=== PATIENT | male | born 1940 | race African-American/Black ===

== ENCOUNTER 2018-06-15 12:17 | Inpatient (IN) | payer MEDICARE ==
[~2018-06-15] VITALS: Ht 182.9 cm; Wt 907.2 kg
[2018-06-15] MEDS ORDERED: SODIUM CHLORIDE 0.9% 500 ML IV ONE (13:25)
[2018-06-15 13:58] LABS: INR 1.1; PARTIAL THROMBOPLASTIN TIME 33.6 sec (23.4-31.0); PROTHROMBIN TIME 11.3 sec (9.1-11.1)
[2018-06-15 14:01] LABS: CHLORIDE 106 mEq/L (98-107)
[2018-06-15 14:09] LABS: BASOPHILS % 0.6 % (0.0-2.0); EOSINOPHILS % 0.1 % (0.0-5.0); HEMATOCRIT. 31.6 % (42.0-52.0); LYMPHOCYTES % 11.7 % (20.0-50.0); MEAN CORPUSCULAR HEMOGLOBIN 23.1 pg (28.0-32.0); MEAN CORPUSCULAR VOLUME 72.9 fL (80.0-94.0); MEAN PLATELET VOLUME 8.2 fl (7.4-10.4); MONOCYTES % 6.3 % (2.0-8.0); NEUTROPHILS % 81.3 % (40.0-76.0); PLATELET 390 x1000/uL (130-400); RED BLOOD CELL COUNT 4.33 mill/uL (4.7-6.1); RED CELL DISTRIBUTION WIDTH 18.4 % (11.6-14.6)
[2018-06-15 20:45] VITALS: BP 124/64
[2018-06-15 21:00] VITALS: BP 124/64
[2018-06-15] MEDS ORDERED: CLONIDINE 0.1MG TABLET PO PRN (22:30)
[2018-06-16] VITALS (7 sets, daily range): BP systolic 115–141; BP diastolic 62–79
[2018-06-16] MEDS ORDERED: ONDANSETRON HCL 4MG/2ML INJ IV PRN (07:30)
[2018-06-16] MEDS: ASPIRIN 325MG EC TABLET PO SCH (08:21)
[2018-06-16 17:56] LABS: ETHANOL BLOOD < 10 mg/dL
[2018-06-16 18:10] LABS: CREATINE KINASE 63 IU/L (39-308); CREATINE KINASE MB FRACTION < 1.0 ng/mL (0.5-3.6)
[2018-06-16] MEDS: LEVETIRACETAM 500MG TABLET PO SCH (21:23)
[2018-06-17 04:00] VITALS: BP 124/60
[2018-06-17 07:51] LABS: BASOPHILS % 0.7 % (0.0-2.0); EOSINOPHILS % 0.8 % (0.0-5.0); HEMATOCRIT. 28.5 % (42.0-52.0); LYMPHOCYTES % 22.7 % (20.0-50.0); MEAN CORPUSCULAR VOLUME 72.9 fL (80.0-94.0); MEAN PLATELET VOLUME 8.1 fl (7.4-10.4); NEUTROPHILS % 65.8 % (40.0-76.0); PLATELET 347 x1000/uL (130-400); RED BLOOD CELL COUNT 3.91 mill/uL (4.7-6.1); RED CELL DISTRIBUTION WIDTH 17.7 % (11.6-14.6)
[2018-06-17 08:00] VITALS: BP 137/74
[2018-06-17] MEDS: ASPIRIN 325MG EC TABLET PO SCH (08:10)
[2018-06-17] MEDS: LEVETIRACETAM 500MG TABLET PO SCH ×2 (08:10→20:57)
[2018-06-17 08:27] LABS: CHLORIDE 106 mEq/L (98-107)
[2018-06-17] MEDS ORDERED: HYDR200T80 MT (11:24)
[2018-06-17] MEDS ORDERED: AMLO10TA80 MT (11:24)
[2018-06-17] MEDS ORDERED: METO-411 MT (11:24)
[2018-06-17] MEDS ORDERED: ACET-2178 MT (11:24)
[2018-06-17] MEDS ORDERED: FOLI-43 MT (11:24)
[2018-06-17] MEDS ORDERED: IOHEXOL-350 100 ML BOTTLE ONE (11:48)
[2018-06-17] MEDS: ACETAMINOPHEN 325MG TABLET PO PRN (13:23)
[2018-06-17 16:00] VITALS: BP 166/67
[2018-06-17 19:58] VITALS: BP 133/79
[2018-06-18] VITALS (7 sets, daily range): BP systolic 121–157; BP diastolic 67–92
[2018-06-18] MEDS: LEVETIRACETAM 500MG TABLET PO SCH (09:26)
[2018-06-18] MEDS: ASPIRIN 325MG EC TABLET PO SCH (09:27)
[2018-06-18] MEDS: ACETAMINOPHEN 325MG TABLET PO PRN (14:07)
== END 2018-06-18 20:14 | disposition home or self-care (01) | DRG 100 ==
LOC: ER 12:17 → ENRESERV 15:19 → 8WST 15:51 → EDBEDREQTM 15:54 → EDBEDREQ 15:54
PROVIDERS: ADMIT Internal Medicine; ATTEND Internal Medicine
DX: R56.9 Unspecified convulsions (principal); E43 Unspecified severe protein-calorie malnutrition; G92 Toxic encephalopathy; D64.9 Anemia, unspecified; I10 Essential (primary) hypertension; R26.9 Unspecified abnormalities of gait and mobility; I65.1 Occlusion and stenosis of basilar artery; M19.90 Unspecified osteoarthritis, unspecified site; R32 Unspecified urinary incontinence; Z79.82 Long term (current) use of aspirin; Z87.828 Personal history of other (healed) physical injury and trauma; G90.8 Other disorders of autonomic nervous system
CPT/HCPCS: 36415; 70496; 70544; 70551; 71045; 80048; 80061; 82550; 82553; 83036; 83735; 83880; 84443; 84484; 93005; 93306; 93880; 96360; 96361; 97110; 97162; 97166; 97530; 97535; 99285; G0482; J7040; Q9967

== ENCOUNTER 2018-09-25 12:02 | Inpatient (IN) | payer MEDICARE ==
[~2018-09-25] VITALS: Ht 188 cm; Wt 77.1 kg
[~2018-09-25 12:02] MED LIST: ACET-2178 MT; AMLO10TA80 MT; FOLI-43 MT; HYDR200T80 MT; METO-411 MT
[2018-09-25] MEDS ORDERED: SODIUM CHLORIDE 0.9% 1,000 ML IV ONE (12:30)
[2018-09-25 13:07] LABS: BASOPHILS % 0.4 % (0.0-2.0); EOSINOPHILS % 0.1 % (0.0-5.0); HEMATOCRIT. 42.7 % (42.0-52.0); HEMOGLOBIN. 13.4 g/dL (14.0-18.0); LYMPHOCYTES % 12.1 % (20.0-50.0); MEAN CORPUSCULAR HEMOGLOBIN 23.3 pg (28.0-32.0); MEAN CORPUSCULAR VOLUME 74.2 fL (80.0-94.0); MEAN PLATELET VOLUME 8.6 fl (7.4-10.4); MONOCYTES % 5.1 % (2.0-8.0); NEUTROPHILS % 82.3 % (40.0-76.0); PLATELET 386 x1000/uL (130-400); RED BLOOD CELL COUNT 5.75 mill/uL (4.7-6.1); RED CELL DISTRIBUTION WIDTH 19.9 % (11.6-14.6)
[2018-09-25 13:12] LABS: CHLORIDE 99 mEq/L (98-107); INR 1.2; PROTHROMBIN TIME 11.6 sec (9.1-11.1)
[2018-09-25] MEDS ORDERED: INSULIN REGULAR (HUMULIN R) 300UNITS/3ML IV ONE (13:45)
[2018-09-25] MEDS ORDERED: DEXTROSE 50% WATER 50ML SYRINGE IV ONE (13:45)
[2018-09-25] MEDS ORDERED: CALCIUM CHLORIDE 1GM/10ML SYR IV ONE (13:45)
[2018-09-25] MEDS ORDERED: SODIUM BICARBONATE 8.4% 1 MEQ/ML 50ML SYR IV ONE (13:45)
[2018-09-25] MEDS ORDERED: SODIUM CHLORIDE 0.9% 1000ML BAG (SEPSIS BOLUS) IV ONE (14:00)
[2018-09-25] MEDS ORDERED: PIPERACILLIN/TAZ 3.375G PREMIX 50 ML IV ONE (14:00)
[2018-09-25 14:44] LABS: CLARITY URINE CLOUDY (CLEAR); COLOR URINE YELLOW (YELLOW); KETONES URINE NEGATIVE (NEGATIVE); LEUKOCYTE ESTERASE URINE NEGATIVE (NEGATIVE); NITRITE URINE NEGATIVE (NEGATIVE); OCCULT BLOOD URINE NEGATIVE (NEGATIVE); PH URINE 5.5 (4.5-8.0); PROTEIN URINE 1+ (NEGATIVE); UROBILINOGEN URINE 0.2 E.U./dL (0.2-1.0)
[2018-09-25] MEDS ORDERED: DIPHENHYDRAMINE 50MG/ML VIAL IV PRN (16:00)
[2018-09-25] MEDS ORDERED: DOCUSATE SODIUM 100MG CAPSULE PO PRN (16:00)
[2018-09-25] MEDS ORDERED: MAGNESIUM/ALUMINUM HYDROXIDE/SIMETHICONE 30ML UDC PO PRN (16:00)
[2018-09-25] MEDS ORDERED: ACETAMINOPHEN 325MG TABLET PO PRN (16:00)
[2018-09-25] MEDS ORDERED: ONDANSETRON HCL 4MG/2ML INJ IV PRN (16:00)
[2018-09-25] MEDS ORDERED: GUAIFENESIN 200MG/10ML SUGAR FREE UDC PO PRN (16:00)
[2018-09-25] MEDS ORDERED: LORAZEPAM 2MG/ML CPJ IV PRN (16:00)
[2018-09-25] MEDS ORDERED: HYDROCODONE/ACETAMINOPHEN 5/325MG TABLET PO PRN (16:00)
[2018-09-25] MEDS ORDERED: ENOXAPARIN 40MG/0.4ML SYR SUBCUT SCH (16:00)
[2018-09-25] MEDS ORDERED: CLONIDINE 0.1MG TABLET PO PRN (16:00)
[2018-09-25 17:00] VITALS: BP 113/58
[2018-09-25 18:02] LABS: PHOSPHORUS 5.3 mg/dL (2.5-4.9)
[2018-09-25] MEDS: TAMSULOSIN HCL 0.4MG SR CAPSULE PO SCH (18:03)
[2018-09-25 19:53] VITALS: BP 112/65
[2018-09-25] MEDS ORDERED: ENOXAPARIN 30MG/0.3ML SYR SUBCUT SCH (21:00)
[2018-09-25] MEDS: HYDROXYCHLOROQUINE SULFATE 200MG TABLET PO SCH (21:41)
[2018-09-25] MEDS ORDERED: PIPERACILLIN/TAZ 3.375G PREMIX 50 ML IV SCH (22:00)
[2018-09-25] MEDS: PIPERACILLIN/TAZ 2.25G PREMIX 50 ML IV SCH (22:32)
[2018-09-25 23:52] VITALS: BP 112/68
[2018-09-26 03:50] VITALS: BP 110/62
[2018-09-26] MEDS: PIPERACILLIN/TAZ 2.25G PREMIX 50 ML IV SCH (05:30)
[2018-09-26 07:05] LABS: BASOPHILS % 0.6 % (0.0-2.0); HEMATOCRIT. 31.4 % (42.0-52.0); HEMOGLOBIN. 10.1 g/dL (14.0-18.0); LYMPHOCYTES % 20.3 % (20.0-50.0); MEAN CORPUSCULAR HEMOGLOBIN 23.3 pg (28.0-32.0); MEAN CORPUSCULAR VOLUME 72.5 fL (80.0-94.0); MEAN PLATELET VOLUME 8.5 fl (7.4-10.4); MONOCYTES % 9.2 % (2.0-8.0); NEUTROPHILS % 67.9 % (40.0-76.0); PLATELET 275 x1000/uL (130-400); RED BLOOD CELL COUNT 4.32 mill/uL (4.7-6.1); RED CELL DISTRIBUTION WIDTH 19.4 % (11.6-14.6)
[2018-09-26 07:12] LABS: CHLORIDE 107 mEq/L (98-107)
[2018-09-26 08:10] VITALS: BP 127/73
[2018-09-26] MEDS ORDERED: POTASSIUM CHLORIDE 20MEQ TABLET SR PO NR (08:45)
[2018-09-26] MEDS ORDERED: MEDICATION NOT ON FORMULARY EA (Metoprolol Succinate 1 TAB) MT SCH (09:00)
[2018-09-26] MEDS ORDERED: MEDICATION NOT ON FORMULARY EA (Folic Acid 1 TAB) MT SCH (09:00)
[2018-09-26] MEDS: TAMSULOSIN HCL 0.4MG SR CAPSULE PO SCH (12:26)
[2018-09-26] MEDS: AMLODIPINE 10MG TABLET PO SCH (12:27)
[2018-09-26] MEDS: HYDROXYCHLOROQUINE SULFATE 200MG TABLET PO SCH ×2 (12:27→17:39)
[2018-09-26] MEDS: METOPROLOL TARTRATE 50MG TABLET PO SCH ×2 (12:27→17:40)
[2018-09-26] MEDS: FOLIC ACID 1MG TABLET PO SCH (12:28)
[2018-09-26 12:44] VITALS: BP 117/67
[2018-09-26 16:51] VITALS: BP 100/59
[2018-09-26 20:00] VITALS: BP 99/57
[2018-09-26] MEDS: ENOXAPARIN 40MG/0.4ML SYR SUBCUT SCH (20:34)
[2018-09-27] VITALS: BP 107/67
[2018-09-27 04:00] VITALS: BP 111/62
[2018-09-27 06:46] LABS: BASOPHILS % 0.9 % (0.0-2.0); EOSINOPHILS % 3.5 % (0.0-5.0); HEMATOCRIT. 30.5 % (42.0-52.0); HEMOGLOBIN. 9.7 g/dL (14.0-18.0); LYMPHOCYTES % 27.5 % (20.0-50.0); MEAN CORPUSCULAR HEMOGLOBIN 23.4 pg (28.0-32.0); MEAN CORPUSCULAR VOLUME 73.5 fL (80.0-94.0); MEAN PLATELET VOLUME 8.6 fl (7.4-10.4); MONOCYTES % 11.6 % (2.0-8.0); NEUTROPHILS % 56.5 % (40.0-76.0); PLATELET 240 x1000/uL (130-400); RED BLOOD CELL COUNT 4.15 mill/uL (4.7-6.1); RED CELL DISTRIBUTION WIDTH 19.3 % (11.6-14.6)
[2018-09-27 07:02] LABS: CHLORIDE 109 mEq/L (98-107)
[2018-09-27 08:00] VITALS: BP 114/68
[2018-09-27] MEDS: FOLIC ACID 1MG TABLET PO SCH (09:19)
[2018-09-27] MEDS: AMLODIPINE 10MG TABLET PO SCH (09:19)
[2018-09-27] MEDS: METOPROLOL TARTRATE 50MG TABLET PO SCH ×2 (09:19→17:42)
[2018-09-27] MEDS: TAMSULOSIN HCL 0.4MG SR CAPSULE PO SCH (09:19)
[2018-09-27] MEDS: HYDROXYCHLOROQUINE SULFATE 200MG TABLET PO SCH ×2 (09:19→17:42)
[2018-09-27] MEDS ORDERED: POTASSIUM CHLORIDE 20MEQ/PACKET PO NR (09:30)
[2018-09-27 10:23] LABS: PHOSPHORUS 2.8 mg/dL (2.5-4.9)
[2018-09-27] MEDS: FINASTERIDE 5MG TABLET PO SCH (11:52)
[2018-09-27 12:00] VITALS: BP 120/79
[2018-09-27 16:00] VITALS: BP 118/79
[2018-09-27 20:32] VITALS: BP 113/67
[2018-09-27] MEDS: ENOXAPARIN 40MG/0.4ML SYR SUBCUT SCH (22:13)
[2018-09-28] VITALS: BP 113/64
[2018-09-28 04:00] VITALS: BP 134/79
[2018-09-28 06:58] LABS: BASOPHILS % 0.8 % (0.0-2.0); EOSINOPHILS % 3.1 % (0.0-5.0); HEMOGLOBIN. 9.8 g/dL (14.0-18.0); LYMPHOCYTES % 23.5 % (20.0-50.0); MEAN CORPUSCULAR HEMOGLOBIN 23.3 pg (28.0-32.0); MEAN CORPUSCULAR VOLUME 73.5 fL (80.0-94.0); MEAN PLATELET VOLUME 8.6 fl (7.4-10.4); MONOCYTES % 10.7 % (2.0-8.0); NEUTROPHILS % 61.9 % (40.0-76.0); PLATELET 235 x1000/uL (130-400); RED BLOOD CELL COUNT 4.21 mill/uL (4.7-6.1); RED CELL DISTRIBUTION WIDTH 19.8 % (11.6-14.6)
[2018-09-28 07:40] LABS: CHLORIDE 110 mEq/L (98-107)
[2018-09-28] MEDS: FINASTERIDE 5MG TABLET PO SCH (08:57)
[2018-09-28] MEDS: AMLODIPINE 10MG TABLET PO SCH (08:57)
[2018-09-28] MEDS: TAMSULOSIN HCL 0.4MG SR CAPSULE PO SCH (08:58)
[2018-09-28] MEDS: METOPROLOL TARTRATE 50MG TABLET PO SCH ×2 (08:58→19:27)
[2018-09-28] MEDS: FOLIC ACID 1MG TABLET PO SCH (08:58)
[2018-09-28] MEDS: HYDROXYCHLOROQUINE SULFATE 200MG TABLET PO SCH ×2 (08:58→19:27)
[2018-09-28] MEDS ORDERED: POTASSIUM CHLORIDE 20MEQ TABLET SR PO SCH (09:00)
[2018-09-28] MEDS ORDERED: MAGNESIUM 2 G PREMIX 50 ML IV NR (10:30)
[2018-09-28 20:00] VITALS: BP 115/64
[2018-09-28] MEDS: ENOXAPARIN 40MG/0.4ML SYR SUBCUT SCH (21:47)
[2018-09-29] VITALS (7 sets, daily range): BP systolic 107–158; BP diastolic 58–75
[2018-09-29 07:32] LABS: BASOPHILS % 1.2 % (0.0-2.0); EOSINOPHILS % 4.1 % (0.0-5.0); HEMATOCRIT. 29.6 % (42.0-52.0); HEMOGLOBIN. 9.5 g/dL (14.0-18.0); LYMPHOCYTES % 27.4 % (20.0-50.0); MEAN CORPUSCULAR HEMOGLOBIN 23.5 pg (28.0-32.0); MEAN CORPUSCULAR VOLUME 73.3 fL (80.0-94.0); MEAN PLATELET VOLUME 8.6 fl (7.4-10.4); MONOCYTES % 9.3 % (2.0-8.0); PLATELET 242 x1000/uL (130-400); RED BLOOD CELL COUNT 4.04 mill/uL (4.7-6.1); RED CELL DISTRIBUTION WIDTH 19.1 % (11.6-14.6)
[2018-09-29 07:38] LABS: CHLORIDE 108 mEq/L (98-107)
[2018-09-29] MEDS ORDERED: POTASSIUM CHLORIDE 20MEQ TABLET SR PO SCH (09:00)
[2018-09-29] MEDS: TAMSULOSIN HCL 0.4MG SR CAPSULE PO SCH (09:23)
[2018-09-29] MEDS: FOLIC ACID 1MG TABLET PO SCH (09:24)
[2018-09-29] MEDS: AMLODIPINE 10MG TABLET PO SCH (09:24)
[2018-09-29] MEDS: METOPROLOL TARTRATE 50MG TABLET PO SCH (09:24)
[2018-09-29] MEDS: FINASTERIDE 5MG TABLET PO SCH (13:14)
[2018-09-29] MEDS: HYDROXYCHLOROQUINE SULFATE 200MG TABLET PO SCH (13:14)
== END 2018-09-29 21:00 | disposition home health service (06) | DRG 683 ==
LOC: ER 12:02 → 7WST 14:26 → ENRESERV 14:30 → EDBEDREQ 14:37
PROVIDERS: ADMIT Internal Medicine Geriatric Medicine; ATTEND Internal Medicine Geriatric Medicine
DX: N17.0 Acute kidney failure with tubular necrosis (principal); E87.1 Hypo-osmolality and hyponatremia; E44.0 Moderate protein-calorie malnutrition; G82.20 Paraplegia, unspecified; N40.1 Benign prostatic hyperplasia with lower urinary tract symptoms; N13.9 Obstructive and reflux uropathy, unspecified; M06.9 Rheumatoid arthritis, unspecified; R53.81 Other malaise; K56.41 Fecal impaction; E87.5 Hyperkalemia; E87.6 Hypokalemia; N40.0 Benign prostatic hyperplasia without lower urinary tract symptoms; R33.9 Retention of urine, unspecified; M48.00 Spinal stenosis, site unspecified; I11.9 Hypertensive heart disease without heart failure; I25.10 Atherosclerotic heart disease of native coronary artery without angina pectoris; M48.02 Spinal stenosis, cervical region; R62.7 Adult failure to thrive; Z96.651 Presence of right artificial knee joint; M19.90 Unspecified osteoarthritis, unspecified site; M54.16 Radiculopathy, lumbar region; D63.8 Anemia in other chronic diseases classified elsewhere; Z74.01 Bed confinement status; N28.1 Cyst of kidney, acquired; Z68.21 Body mass index [BMI] 21.0-21.9, adult
CPT/HCPCS: 36415; 72141; 72146; 72148; 74176; 76770; 80048; 83605; 83735; 83880; 84100; 84153; 85651; 86140; 86431; 93005; 93306; 93970; 96374; 96375; 97163; 97166; 97530; 97535; 99291; J1650; J1815; J2543; J3475; J3490; J7030; A4315; G0103